=== PATIENT | female | born 1955 | race Caucasian/White ===

== ENCOUNTER 2020-04-15 14:40 | Inpatient (IN) | payer OTHER ==
[~2020-04-15] VITALS: Ht 160 cm; Wt 93.9 kg
[2020-04-15 17:23] LABS: BASOPHILS % 0.4 % (0.0-2.0); EOSINOPHILS % 0.2 % (0.0-5.0); HEMATOCRIT. 42.7 % (36.0-48.0); HEMOGLOBIN. 14.1 g/dL (12.0-16.0); LYMPHOCYTES % 10.1 % (20.0-50.0); MEAN CORPUSCULAR HEMOGLOBIN 28.8 pg (28.0-32.0); MEAN CORPUSCULAR VOLUME 87.5 fL (81.0-99.0); MEAN PLATELET VOLUME 8.2 fl (7.4-10.4); MONOCYTES % 7.8 % (2.0-8.0); NEUTROPHILS % 81.5 % (40.0-76.0); PLATELET 138 x1000/uL (130-400); RED BLOOD CELL COUNT 4.88 mill/uL (4.2-5.4); RED CELL DISTRIBUTION WIDTH 14.7 % (11.6-14.6)
[2020-04-15 17:29] LABS: CHLORIDE 103 mEq/L (98-107)
[2020-04-15 18:01] LABS: CLARITY URINE CLEAR (CLEAR); COLOR URINE YELLOW (YELLOW); KETONES URINE NEGATIVE (NEGATIVE); LEUKOCYTE ESTERASE URINE NEGATIVE (NEGATIVE); NITRITE URINE NEGATIVE (NEGATIVE); OCCULT BLOOD URINE 1+ (NEGATIVE); PH URINE 5.5 (4.5-8.0); PROTEIN URINE 2+ (NEGATIVE); SPECIFIC GRAVITY URINE 1.012 (1.005-1.030); UROBILINOGEN URINE 0.2 E.U./dL (0.2-1.0)
[2020-04-15] MEDS ORDERED: CLONIDINE 0.1MG TABLET PO PRN (20:45)
[2020-04-15] MEDS ORDERED: ONDANSETRON HCL 4MG/2ML INJ IV PRN (20:45)
[2020-04-15] MEDS ORDERED: VECURONIUM BROMIDE 10 MG/VIAL IV ONE ×2 (22:15→23:00)
[2020-04-15] MEDS ORDERED: VECURONIUM BROMIDE 10 MG/VIAL IV NR (22:15)
[2020-04-15] MEDS ORDERED: FENTANYL CITRATE/PF 2,500 MCG in SODIUM CHLORIDE 0.9% 200 ML IV PRN ×2 (22:15→22:30)
[2020-04-15] MEDS ORDERED: PROPOFOL 10MG/ML 100ML 100 ML IV SCH (22:15)
[2020-04-15] MEDS ORDERED: ETOMIDATE 2MG/ML 10ML VIAL IV NR (22:15)
[2020-04-15] MEDS ORDERED: DEXAMETHASONE 10 MG/ML VIAL IV NR (23:00)
[2020-04-15] MEDS ORDERED: ETOMIDATE 2MG/ML 10ML VIAL IV ONE (23:00)
[2020-04-15] MEDS ORDERED: AZITHROMYCIN 500 MG TABLET PO NR (23:00)
[2020-04-15] MEDS ORDERED: SODIUM CHLORIDE 0.9% 10ML VIAL ONE (23:00)
[2020-04-15] MEDS: CEFTRIAXONE 1,000 MG in DEXTROSE 5% WATER 50 ML IV SCH (23:00)
[2020-04-15] MEDS ORDERED: ENOXAPARIN 40MG/0.4ML SYR SUBCUT SCH (23:00)
[2020-04-15] MEDS ORDERED: CEFTRIAXONE SODIUM 1 G/VIAL ONE (23:53)
[2020-04-16 00:23] LABS: BG BASE EXCESS -5.1 mmol/L (-2.0-2.0); BG CARBOXYHEMOGLOBIN 0.3 % (0.5-1.5); BG FRACTION INSPIRED OXYGEN 100; BG HCO3 ACT 19.4 mmol/L (22.0-26.0); BG METHEMOGLOBIN 0.2 % (0.0-1.5); BG OXYHEMOGLOBIN 94.5 % (94.0-97.0); BG PCO2 34.5 mmHg (35.0-45.0); BG PH 7.367 (7.350-7.450); BG PO2 75.9 mmHg (75.0-100.0); BG TOTAL HEMOGLOBIN 14.4 g/dL (12.0-18.0); BG VENT MODE MASK - NRB
[2020-04-16 05:57] LABS: HEMATOCRIT. 37.7 % (36.0-48.0); HEMOGLOBIN. 12.7 g/dL (12.0-16.0); MEAN CORPUSCULAR HEMOGLOBIN 29.3 pg (28.0-32.0); MEAN PLATELET VOLUME 8.2 fl (7.4-10.4); PLATELET 132 x1000/uL (130-400); RED BLOOD CELL COUNT 4.34 mill/uL (4.2-5.4); RED CELL DISTRIBUTION WIDTH 14.6 % (11.6-14.6)
[2020-04-16 07:57] LABS: PLATELET ESTIMATE NORMAL
[2020-04-16] MEDS: DEXAMETHASONE 4MG TABLET PO SCH (09:00)
[2020-04-16] MEDS: SODIUM CHLORIDE 0.45% 1,000 ML IV SCH (15:30)
[2020-04-16 18:25] LABS: BG BASE EXCESS -5.1 mmol/L (-2.0-2.0); BG CARBOXYHEMOGLOBIN 0.3 % (0.5-1.5); BG DEOXYHEMOGLOBIN 13.4 % (0.0-5.0); BG FRACTION INSPIRED OXYGEN 100; BG HCO3 ACT 19.3 mmol/L (22.0-26.0); BG METHEMOGLOBIN 0.3 % (0.0-1.5); BG OXYGEN SATURATION 86.5 % (92.0-98.5); BG PCO2 34.5 mmHg (35.0-45.0); BG PH 7.366 (7.350-7.450); BG PO2 51.3 mmHg (75.0-100.0); BG SAMPLE SITE RIGHT BRACHIAL; BG TOTAL HEMOGLOBIN 14.8 g/dL (12.0-18.0); BG VENT MODE MASK - NRB
[2020-04-16] MEDS: ENOXAPARIN 40MG/0.4ML SYR SUBCUT SCH (21:00)
[2020-04-16] MEDS: ASCORBIC ACID 500 MG TABLET PO SCH (22:00)
[2020-04-16] MEDS: CEFTRIAXONE 1,000 MG in DEXTROSE 5% WATER 50 ML IV SCH (23:00)
[2020-04-16] MEDS: AZITHROMYCIN 250 MG TABLET PO SCH (23:00)
[2020-04-17] MEDS: ACETAMINOPHEN 325MG TABLET PO PRN ×2 (06:09→22:53)
[2020-04-17 09:15] LABS: HEMATOCRIT. 38.7 % (36.0-48.0); MEAN CORPUSCULAR HEMOGLOBIN 29.3 pg (28.0-32.0); MEAN CORPUSCULAR VOLUME 87.4 fL (81.0-99.0); MEAN PLATELET VOLUME 8.1 fl (7.4-10.4); PLATELET 156 x1000/uL (130-400); RED BLOOD CELL COUNT 4.43 mill/uL (4.2-5.4); RED CELL DISTRIBUTION WIDTH 14.3 % (11.6-14.6)
[2020-04-17] MEDS: DEXAMETHASONE 4MG TABLET PO SCH (10:21)
[2020-04-17] MEDS: ASCORBIC ACID 500 MG TABLET PO SCH ×3 (10:21→22:53)
[2020-04-17] MEDS: SODIUM CHLORIDE 0.45% 1,000 ML IV SCH (12:53)
[2020-04-17 16:02] LABS: PLATELET ESTIMATE NORMAL
[2020-04-17] MEDS: ALBUTEROL 6.7GM HFA INHALER ORI PRN (20:51)
[2020-04-17] MEDS: AZITHROMYCIN 250 MG TABLET PO SCH (22:53)
[2020-04-17] MEDS: ENOXAPARIN 40MG/0.4ML SYR SUBCUT SCH (22:53)
[2020-04-18] MEDS: CEFTRIAXONE 1,000 MG in DEXTROSE 5% WATER 50 ML IV SCH ×2 (01:02→19:07)
[2020-04-18] MEDS: ASCORBIC ACID 500 MG TABLET PO SCH ×3 (06:29→23:03)
[2020-04-18] MEDS: SODIUM CHLORIDE 0.45% 1,000 ML IV SCH (06:43)
[2020-04-18] MEDS: DEXAMETHASONE 4MG TABLET PO SCH (09:27)
[2020-04-18 10:26] LABS: BG BASE EXCESS -4.2 mmol/L (-2.0-2.0); BG CARBOXYHEMOGLOBIN 0.2 % (0.5-1.5); BG DEOXYHEMOGLOBIN 4.1 % (0.0-5.0); BG FRACTION INSPIRED OXYGEN 99.9; BG METHEMOGLOBIN 0.1 % (0.0-1.5); BG OXYGEN SATURATION 95.9 % (92.0-98.5); BG OXYHEMOGLOBIN 95.6 % (94.0-97.0); BG PCO2 34.1 mmHg (35.0-45.0); BG PH 7.386 (7.350-7.450); BG PO2 82.1 mmHg (75.0-100.0); BG SAMPLE SITE RIGHT BRACHIAL; BG TOTAL HEMOGLOBIN 14.4 g/dL (12.0-18.0); BG VENT MODE MASK - NRB
[2020-04-18] MEDS: ALBUTEROL 6.7GM HFA INHALER ORI PRN (11:28)
[2020-04-18] MEDS ORDERED: TRAMADOL 50MG TABLET PO ONE (12:00)
[2020-04-18 16:00] VITALS: BP 131/70
[2020-04-18 17:00] VITALS: BP 131/70
[2020-04-18] MEDS ORDERED: DEXTROSE 50% WATER 50ML SYRINGE IV PRN (17:15)
[2020-04-18] MEDS: BLOOD SUGAR DIAGNOSTIC STRIP TEST SCH ×2 (17:40→21:34)
[2020-04-18] MEDS: INSULIN LISPRO 100 UNITS/ML SUBCUT SCH ×2 (18:10→23:03)
[2020-04-18 20:00] VITALS: BP 141/64
[2020-04-18] MEDS: ENOXAPARIN 40MG/0.4ML SYR SUBCUT SCH (23:02)
[2020-04-18] MEDS: AZITHROMYCIN 250 MG TABLET PO SCH (23:03)
[2020-04-19] VITALS: BP 138/81
[2020-04-19 04:00] VITALS: BP 122/99
[2020-04-19] MEDS: SODIUM CHLORIDE 0.45% 1,000 ML IV SCH ×2 (04:14→22:43)
[2020-04-19] MEDS: TRAMADOL 50MG TABLET PO PRN (04:20)
[2020-04-19] MEDS: ASCORBIC ACID 500 MG TABLET PO SCH ×3 (06:00→22:42)
[2020-04-19] MEDS: BLOOD SUGAR DIAGNOSTIC STRIP TEST SCH ×4 (06:58→21:00)
[2020-04-19 08:00] VITALS: BP 137/75
[2020-04-19] MEDS: INSULIN LISPRO 100 UNITS/ML SUBCUT SCH ×4 (08:10→21:00)
[2020-04-19] MEDS: DEXAMETHASONE 4MG TABLET PO SCH (08:51)
[2020-04-19 12:00] VITALS: BP 137/83
[2020-04-19 16:00] VITALS: BP 134/79
[2020-04-19] MEDS ORDERED: PHEN8TAB PO (16:55)
[2020-04-19] MEDS ORDERED: LOSA1TAB37 MT (16:56)
[2020-04-19] MEDS ORDERED: ATOR10TA69 PO (16:57)
[2020-04-19] MEDS ORDERED: METF-414 PO (16:58)
[2020-04-19] MEDS: ACETAMINOPHEN 325MG TABLET PO PRN (17:03)
[2020-04-19] MEDS: CEFTRIAXONE 1,000 MG in DEXTROSE 5% WATER 50 ML IV SCH (18:06)
[2020-04-19 20:00] VITALS: BP 138/49
[2020-04-19] MEDS: ENOXAPARIN 40MG/0.4ML SYR SUBCUT SCH (22:41)
[2020-04-19] MEDS: AZITHROMYCIN 250 MG TABLET PO SCH (22:42)
[2020-04-20 04:00] VITALS: BP 153/84
[2020-04-20] MEDS: BLOOD SUGAR DIAGNOSTIC STRIP TEST SCH ×4 (05:53→20:57)
[2020-04-20] MEDS: ASCORBIC ACID 500 MG TABLET PO SCH ×3 (05:53→20:58)
[2020-04-20] MEDS: TRAMADOL 50MG TABLET PO PRN (06:31)
[2020-04-20 08:00] VITALS: BP 123/78
[2020-04-20] MEDS: INSULIN LISPRO 100 UNITS/ML SUBCUT SCH ×4 (08:10→20:59)
[2020-04-20] MEDS: DEXAMETHASONE 4MG TABLET PO SCH (09:25)
[2020-04-20 12:00] VITALS: BP 135/69
[2020-04-20 16:00] VITALS: BP 127/73
[2020-04-20 20:00] VITALS: BP 142/85
[2020-04-20] MEDS: ENOXAPARIN 40MG/0.4ML SYR SUBCUT SCH (20:58)
[2020-04-21] VITALS: BP 155/90
[2020-04-21 04:00] VITALS: BP 140/90
[2020-04-21] MEDS: ASCORBIC ACID 500 MG TABLET PO SCH ×3 (06:00→21:04)
[2020-04-21] MEDS: INSULIN LISPRO 100 UNITS/ML SUBCUT SCH ×4 (06:08→21:05)
[2020-04-21] MEDS: BLOOD SUGAR DIAGNOSTIC STRIP TEST SCH ×4 (06:08→21:04)
[2020-04-21] MEDS: SODIUM CHLORIDE 0.45% 1,000 ML IV SCH (06:09)
[2020-04-21] MEDS: TRAMADOL 50MG TABLET PO PRN (06:10)
[2020-04-21 07:21] LABS: HEMATOCRIT. 47.2 % (36.0-48.0); HEMOGLOBIN. 15.4 g/dL (12.0-16.0); MEAN CORPUSCULAR HEMOGLOBIN 28.7 pg (28.0-32.0); MEAN CORPUSCULAR VOLUME 87.8 fL (81.0-99.0); MEAN PLATELET VOLUME 8.1 fl (7.4-10.4); PLATELET 258 x1000/uL (130-400); RED BLOOD CELL COUNT 5.37 mill/uL (4.2-5.4); RED CELL DISTRIBUTION WIDTH 14.4 % (11.6-14.6)
[2020-04-21 07:33] LABS: CHLORIDE 104 mEq/L (98-107)
[2020-04-21 08:00] VITALS: BP 174/106
[2020-04-21] MEDS: DEXAMETHASONE 4MG TABLET PO SCH (09:23)
[2020-04-21 11:30] VITALS: BP 155/79
[2020-04-21 16:00] VITALS: BP 137/87
[2020-04-21] MEDS ORDERED: ZOLPIDEM TARTRATE 5MG TABLET PO PRN (17:15)
[2020-04-21 20:00] VITALS: BP 137/78
[2020-04-21] MEDS: ENOXAPARIN 40MG/0.4ML SYR SUBCUT SCH (21:06)
[2020-04-21 22:36] LABS: PLATELET ESTIMATE NORMAL
[2020-04-22] VITALS: BP 137/76
[2020-04-22 04:00] VITALS: BP 140/83
[2020-04-22] MEDS: ASCORBIC ACID 500 MG TABLET PO SCH ×3 (06:00→21:53)
[2020-04-22] MEDS: BLOOD SUGAR DIAGNOSTIC STRIP TEST SCH ×4 (07:10→21:52)
[2020-04-22] MEDS: INSULIN LISPRO 100 UNITS/ML SUBCUT SCH ×4 (07:10→21:54)
[2020-04-22 07:54] LABS: HEMATOCRIT. 46.6 % (36.0-48.0); HEMOGLOBIN. 15.3 g/dL (12.0-16.0); MEAN CORPUSCULAR HEMOGLOBIN 28.7 pg (28.0-32.0); MEAN CORPUSCULAR VOLUME 87.7 fL (81.0-99.0); MEAN PLATELET VOLUME 8.1 fl (7.4-10.4); PLATELET 265 x1000/uL (130-400); RED BLOOD CELL COUNT 5.32 mill/uL (4.2-5.4); RED CELL DISTRIBUTION WIDTH 14.6 % (11.6-14.6)
[2020-04-22 08:00] VITALS: BP 142/80
[2020-04-22 08:19] LABS: CHLORIDE 104 mEq/L (98-107)
[2020-04-22] MEDS ORDERED: FUROSEMIDE 20MG/2ML VIAL IVP NR (09:00)
[2020-04-22] MEDS ORDERED: GUAIFENESIN/CODEINE 100-10MG/5ML UDC PO PRN (09:00)
[2020-04-22] MEDS ORDERED: GUAIFENESIN/CODEINE 200-20MG/10ML UDC PO PRN (09:15)
[2020-04-22] MEDS: DEXAMETHASONE 4MG TABLET PO SCH (09:33)
[2020-04-22] MEDS: BENZONATATE 100MG CAPSULE PO SCH ×3 (09:33→21:53)
[2020-04-22 12:00] VITALS: BP 137/78
[2020-04-22] MEDS ORDERED: LACTULOSE 20G/30ML UDC PO PRN (14:00)
[2020-04-22] MEDS: DOCUSATE SODIUM 250MG CAPSULE PO SCH (14:46)
[2020-04-22 15:39] LABS: PLATELET ESTIMATE NORMAL
[2020-04-22 16:00] VITALS: BP 126/74
[2020-04-22 20:00] VITALS: BP 149/88
[2020-04-22] MEDS: ENOXAPARIN 40MG/0.4ML SYR SUBCUT SCH (21:52)
[2020-04-23] VITALS (60 sets, daily range): BP systolic 99–186; BP diastolic 50–117
[2020-04-23] MEDS: BENZONATATE 100MG CAPSULE PO SCH ×3 (05:38→21:25)
[2020-04-23] MEDS: ASCORBIC ACID 500 MG TABLET PO SCH ×3 (05:38→21:24)
[2020-04-23] MEDS: BLOOD SUGAR DIAGNOSTIC STRIP TEST SCH ×4 (07:02→21:25)
[2020-04-23] MEDS: INSULIN LISPRO 100 UNITS/ML SUBCUT SCH ×4 (08:10→21:25)
[2020-04-23] MEDS: DEXAMETHASONE 4MG TABLET PO SCH (09:18)
[2020-04-23] MEDS: DOCUSATE SODIUM 250MG CAPSULE PO SCH (09:18)
[2020-04-23] MEDS ORDERED: FENTANYL CITRATE/PF 1,000 MCG in SODIUM CHLORIDE 0.9% 80 ML IV PRN (14:00)
[2020-04-23 16:24] LABS: BG BASE EXCESS -2.1 mmol/L (-2.0-2.0); BG CARBOXYHEMOGLOBIN 0.3 % (0.5-1.5); BG DEOXYHEMOGLOBIN 1.2 % (0.0-5.0); BG FRACTION INSPIRED OXYGEN 100; BG HCO3 ACT 26.2 mmol/L (22.0-26.0); BG METHEMOGLOBIN 0.5 % (0.0-1.5); BG OXYGEN SATURATION 98.8 % (92.0-98.5); BG PH 7.266 (7.350-7.450); BG PO2 171.2 mmHg (75.0-100.0); BG SAMPLE SITE RIGHT RADIAL; BG TOTAL HEMOGLOBIN 16.4 g/dL (12.0-18.0); BG TOTAL RESPIRATORY RATE 29 b/min; BG VENT MODE VENT - AC
[2020-04-23 19:21] LABS: HEMATOCRIT. 42.9 % (36.0-48.0); HEMOGLOBIN. 13.9 g/dL (12.0-16.0); MEAN CORPUSCULAR HEMOGLOBIN 28.3 pg (28.0-32.0); MEAN CORPUSCULAR VOLUME 87.6 fL (81.0-99.0); MEAN PLATELET VOLUME 8.3 fl (7.4-10.4); PLATELET 225 x1000/uL (130-400); RED CELL DISTRIBUTION WIDTH 14.7 % (11.6-14.6)
[2020-04-23 19:22] LABS: CHLORIDE 102 mEq/L (98-107)
[2020-04-23 20:07] LABS: PLATELET ESTIMATE NORMAL
[2020-04-23] MEDS: ENOXAPARIN 40MG/0.4ML SYR SUBCUT SCH (21:24)
[2020-04-24] VITALS (139 sets, daily range): BP systolic 88–179; BP diastolic 48–124
[2020-04-24] MEDS: PROPOFOL 10MG/ML 100ML 100 ML IV PRN ×4 (00:51→13:03)
[2020-04-24] MEDS: INSULIN LISPRO 100 UNITS/ML SUBCUT SCH ×3 (06:00→18:43)
[2020-04-24] MEDS: BLOOD SUGAR DIAGNOSTIC STRIP TEST SCH ×3 (06:54→18:45)
[2020-04-24] MEDS: ASCORBIC ACID 500 MG TABLET PO SCH ×3 (06:56→21:17)
[2020-04-24] MEDS: BENZONATATE 100MG CAPSULE PO SCH ×3 (06:57→21:18)
[2020-04-24] MEDS: DEXAMETHASONE 4MG TABLET PO SCH (10:13)
[2020-04-24] MEDS: DOCUSATE SODIUM 250MG CAPSULE PO SCH (10:13)
[2020-04-24] MEDS: PANTOPRAZOLE SODIUM 40 MG/VIAL IV SCH (10:14)
[2020-04-24] MEDS: FENTANYL CITRATE/PF 2,500 MCG in SODIUM CHLORIDE 0.9% 200 ML IV PRN ×2 (10:27→22:33)
[2020-04-24 11:52] LABS: BG BASE EXCESS -9.1 mmol/L (-2.0-2.0); BG CARBOXYHEMOGLOBIN 0.3 % (0.5-1.5); BG DEOXYHEMOGLOBIN 9.1 % (0.0-5.0); BG FRACTION INSPIRED OXYGEN 90; BG HCO3 ACT 15.5 mmol/L (22.0-26.0); BG METHEMOGLOBIN 0.2 % (0.0-1.5); BG OXYGEN SATURATION 90.9 % (92.0-98.5); BG OXYHEMOGLOBIN 90.4 % (94.0-97.0); BG PCO2 30.7 mmHg (35.0-45.0); BG PH 7.322 (7.350-7.450); BG PO2 65.3 mmHg (75.0-100.0); BG SAMPLE SITE RIGHT RADIAL; BG TOTAL HEMOGLOBIN 14.9 g/dL (12.0-18.0); BG TOTAL RESPIRATORY RATE 35 b/min; BG VENT MODE VENT - AC
[2020-04-24] MEDS ORDERED: METOPROLOL TARTRATE 25MG TABLET PO NR (12:15)
[2020-04-24] MEDS ORDERED: PROPOFOL 10MG/ML 100ML 100 ML IV PRN (21:00)
[2020-04-24] MEDS: METOPROLOL TARTRATE 25MG TABLET PO SCH (21:18)
[2020-04-24] MEDS: ENOXAPARIN 40MG/0.4ML SYR SUBCUT SCH (21:18)
[2020-04-24] MEDS ORDERED: MIDAZOLAM HCL 100 MG in DEXT 5% WATER 80 ML IV PRN (22:15)
[2020-04-25] VITALS (68 sets, daily range): BP systolic 86–152; BP diastolic 51–109
[2020-04-25] MEDS: INSULIN LISPRO 100 UNITS/ML SUBCUT SCH ×4 (00:22→18:54)
[2020-04-25] MEDS: BLOOD SUGAR DIAGNOSTIC STRIP TEST SCH ×5 (00:22→23:50)
[2020-04-25] MEDS: PROPOFOL 10MG/ML 100ML 100 ML IV PRN ×3 (03:14→17:24)
[2020-04-25] MEDS: BENZONATATE 100MG CAPSULE PO SCH ×3 (05:39→23:49)
[2020-04-25] MEDS: ASCORBIC ACID 500 MG TABLET PO SCH ×3 (05:40→23:49)
[2020-04-25 07:14] LABS: HEMATOCRIT. 38.9 % (36.0-48.0); HEMOGLOBIN. 12.8 g/dL (12.0-16.0); MEAN PLATELET VOLUME 8.4 fl (7.4-10.4); PLATELET 188 x1000/uL (130-400); RED BLOOD CELL COUNT 4.42 mill/uL (4.2-5.4); RED CELL DISTRIBUTION WIDTH 14.8 % (11.6-14.6)
[2020-04-25 07:34] LABS: CHLORIDE 109 mEq/L (98-107)
[2020-04-25] MEDS: FENTANYL CITRATE/PF 2,500 MCG in SODIUM CHLORIDE 0.9% 200 ML IV PRN ×2 (08:25→17:22)
[2020-04-25] MEDS: DOCUSATE SODIUM 250MG CAPSULE PO SCH (08:25)
[2020-04-25] MEDS: PANTOPRAZOLE SODIUM 40 MG/VIAL IV SCH (08:25)
[2020-04-25] MEDS: METOPROLOL TARTRATE 25MG TABLET PO SCH ×2 (08:26→23:50)
[2020-04-25] MEDS: DEXAMETHASONE 4MG TABLET PO SCH (08:28)
[2020-04-25 12:35] LABS: BG BASE EXCESS -0.7 mmol/L (-2.0-2.0); BG CARBOXYHEMOGLOBIN 0.7 % (0.5-1.5); BG DEOXYHEMOGLOBIN 13.7 % (0.0-5.0); BG FRACTION INSPIRED OXYGEN 100; BG HCO3 ACT 26.8 mmol/L (22.0-26.0); BG METHEMOGLOBIN 0.3 % (0.0-1.5); BG OXYGEN SATURATION 86.2 % (92.0-98.5); BG OXYHEMOGLOBIN 85.3 % (94.0-97.0); BG PCO2 56.2 mmHg (35.0-45.0); BG PH 7.297 (7.350-7.450); BG PO2 54.4 mmHg (75.0-100.0); BG SAMPLE SITE RIGHT RADIAL; BG VENT MODE VENT - AC
[2020-04-25 18:41] LABS: PLATELET ESTIMATE NORMAL
[2020-04-25] MEDS: ENOXAPARIN 40MG/0.4ML SYR SUBCUT SCH (23:50)
[2020-04-26] VITALS (81 sets, daily range): BP systolic 79–134; BP diastolic 43–94
[2020-04-26] MEDS: ACETAMINOPHEN 325MG TABLET PO PRN (00:06)
[2020-04-26] MEDS: PROPOFOL 10MG/ML 100ML 100 ML IV PRN ×3 (01:04→18:00)
[2020-04-26] MEDS: FENTANYL CITRATE/PF 2,500 MCG in SODIUM CHLORIDE 0.9% 200 ML IV PRN ×2 (02:33→12:22)
[2020-04-26] MEDS: PHENYLEPHRINE 100 MG in DEXT 5% WATER 240 ML IV PRN ×2 (03:48→18:02)
[2020-04-26] MEDS: INSULIN LISPRO 100 UNITS/ML SUBCUT SCH ×5 (06:00→23:15)
[2020-04-26] MEDS: ASCORBIC ACID 500 MG TABLET PO SCH ×3 (06:23→21:28)
[2020-04-26] MEDS: BENZONATATE 100MG CAPSULE PO SCH ×3 (06:23→21:28)
[2020-04-26] MEDS: BLOOD SUGAR DIAGNOSTIC STRIP TEST SCH ×4 (06:24→23:08)
[2020-04-26 06:27] LABS: HEMATOCRIT. 38.1 % (36.0-48.0); HEMOGLOBIN. 12.4 g/dL (12.0-16.0); MEAN CORPUSCULAR HEMOGLOBIN 29.1 pg (28.0-32.0); MEAN CORPUSCULAR VOLUME 89.1 fL (81.0-99.0); MEAN PLATELET VOLUME 8.8 fl (7.4-10.4); PLATELET 224 x1000/uL (130-400); RED BLOOD CELL COUNT 4.27 mill/uL (4.2-5.4); RED CELL DISTRIBUTION WIDTH 15.1 % (11.6-14.6)
[2020-04-26] MEDS: DEXAMETHASONE 4MG TABLET PO SCH (09:09)
[2020-04-26] MEDS: DOCUSATE SODIUM 250MG CAPSULE PO SCH (09:09)
[2020-04-26] MEDS: METOPROLOL TARTRATE 25MG TABLET PO SCH ×2 (09:09→20:42)
[2020-04-26] MEDS: FAMOTIDINE 20MG/2ML VIAL IV SCH ×2 (09:09→21:29)
[2020-04-26 10:09] LABS: BG BASE EXCESS 2.4 mmol/L (-2.0-2.0); BG CARBOXYHEMOGLOBIN 0.7 % (0.5-1.5); BG DEOXYHEMOGLOBIN 5.6 % (0.0-5.0); BG FRACTION INSPIRED OXYGEN 100; BG HCO3 ACT 30.8 mmol/L (22.0-26.0); BG METHEMOGLOBIN 0.3 % (0.0-1.5); BG OXYGEN SATURATION 94.3 % (92.0-98.5); BG OXYHEMOGLOBIN 93.4 % (94.0-97.0); BG PCO2 65.6 mmHg (35.0-45.0); BG PO2 73.2 mmHg (75.0-100.0); BG SAMPLE SITE RIGHT RADIAL; BG VENT MODE VENT - AC
[2020-04-26] MEDS: CEFEPIME 1,000 MG in DEXTROSE 5% WATER 50 ML IV SCH ×2 (12:08→21:28)
[2020-04-26] MEDS: SODIUM CHLORIDE 0.45% 1,000 ML IV SCH (15:17)
[2020-04-26 17:02] LABS: PLATELET ESTIMATE NORMAL
[2020-04-26] MEDS: ENOXAPARIN 40MG/0.4ML SYR SUBCUT SCH (21:28)
[2020-04-27] VITALS (67 sets, daily range): BP systolic 75–187; BP diastolic 33–105
[2020-04-27] MEDS: FENTANYL CITRATE/PF 2,500 MCG in SODIUM CHLORIDE 0.9% 200 ML IV PRN ×3 (00:15→18:28)
[2020-04-27] MEDS: PROPOFOL 10MG/ML 100ML 100 ML IV PRN ×5 (02:30→23:42)
[2020-04-27] MEDS: SODIUM CHLORIDE 0.45% 1,000 ML IV SCH ×2 (04:41→17:54)
[2020-04-27] MEDS: ASCORBIC ACID 500 MG TABLET PO SCH ×3 (05:14→21:29)
[2020-04-27] MEDS: BENZONATATE 100MG CAPSULE PO SCH ×3 (05:14→21:29)
[2020-04-27] MEDS: BLOOD SUGAR DIAGNOSTIC STRIP TEST SCH ×4 (05:14→23:42)
[2020-04-27] MEDS: INSULIN LISPRO 100 UNITS/ML SUBCUT SCH ×4 (05:21→23:42)
[2020-04-27 06:16] LABS: HEMATOCRIT. 38.7 % (36.0-48.0); HEMOGLOBIN. 12.5 g/dL (12.0-16.0); MEAN CORPUSCULAR HEMOGLOBIN 28.8 pg (28.0-32.0); MEAN CORPUSCULAR VOLUME 89.2 fL (81.0-99.0); MEAN PLATELET VOLUME 9.3 fl (7.4-10.4); PLATELET 214 x1000/uL (130-400); RED BLOOD CELL COUNT 4.34 mill/uL (4.2-5.4); RED CELL DISTRIBUTION WIDTH 14.9 % (11.6-14.6)
[2020-04-27 08:37] LABS: CHLORIDE 107 mEq/L (98-107)
[2020-04-27] MEDS: METOPROLOL TARTRATE 25MG TABLET PO SCH ×2 (09:00→21:00)
[2020-04-27] MEDS: DOCUSATE SODIUM 250MG CAPSULE PO SCH (09:16)
[2020-04-27] MEDS: FAMOTIDINE 20MG/2ML VIAL IV SCH ×2 (09:16→21:29)
[2020-04-27] MEDS: CEFEPIME 1,000 MG in DEXTROSE 5% WATER 50 ML IV SCH ×2 (09:17→21:28)
[2020-04-27 10:27] LABS: PLATELET ESTIMATE NORMAL
[2020-04-27 11:10] LABS: BG BASE EXCESS 2.3 mmol/L (-2.0-2.0); BG CARBOXYHEMOGLOBIN 0.5 % (0.5-1.5); BG DEOXYHEMOGLOBIN 10.1 % (0.0-5.0); BG FRACTION INSPIRED OXYGEN 85; BG HCO3 ACT 30.1 mmol/L (22.0-26.0); BG METHEMOGLOBIN 0.4 % (0.0-1.5); BG OXYGEN SATURATION 89.8 % (92.0-98.5); BG PCO2 60.5 mmHg (35.0-45.0); BG PH 7.314 (7.350-7.450); BG PO2 57.1 mmHg (75.0-100.0); BG SAMPLE SITE RIGHT RADIAL; BG TOTAL HEMOGLOBIN 13.7 g/dL (12.0-18.0); BG VENT MODE VENT - AC
[2020-04-27] MEDS ORDERED: SODIUM POLYSTYRENE SULFONATE 15 G/60 ML BOT NG NR (12:30)
[2020-04-27] MEDS: PHENYLEPHRINE 100 MG in DEXT 5% WATER 240 ML IV PRN (18:00)
[2020-04-27] MEDS: ENOXAPARIN 30MG/0.3ML SYR SUBCUT SCH (21:29)
[2020-04-28] VITALS (79 sets, daily range): BP systolic 60–172; BP diastolic 30–113
[2020-04-28] MEDS: FENTANYL CITRATE/PF 2,500 MCG in SODIUM CHLORIDE 0.9% 200 ML IV PRN ×3 (02:35→21:31)
[2020-04-28] MEDS ORDERED: PROPOFOL 10MG/ML 100ML 100 ML IV PRN (04:15)
[2020-04-28] MEDS: MIDAZOLAM HCL 100 MG in SODIUM CHLORIDE 0.9% 80 ML IV PRN ×2 (04:19→15:12)
[2020-04-28] MEDS ORDERED: ACETAMINOPHEN 650MG/20.3ML UDC PO PRN (04:45)
[2020-04-28] MEDS: ACETAMINOPHEN 325MG TABLET PO PRN (04:47)
[2020-04-28] MEDS: BLOOD SUGAR DIAGNOSTIC STRIP TEST SCH ×4 (05:15→23:55)
[2020-04-28] MEDS: ASCORBIC ACID 500 MG TABLET PO SCH ×3 (05:17→21:30)
[2020-04-28] MEDS: INSULIN LISPRO 100 UNITS/ML SUBCUT SCH ×4 (05:23→23:55)
[2020-04-28] MEDS: BENZONATATE 100MG CAPSULE PO SCH ×3 (05:41→20:00)
[2020-04-28] MEDS: SODIUM CHLORIDE 0.45% 1,000 ML IV SCH ×2 (06:15→19:35)
[2020-04-28] MEDS: CEFEPIME 1,000 MG in DEXTROSE 5% WATER 50 ML IV SCH ×2 (10:08→21:30)
[2020-04-28] MEDS: ENOXAPARIN 30MG/0.3ML SYR SUBCUT SCH ×2 (10:09→21:29)
[2020-04-28] MEDS: DOCUSATE SODIUM 250MG CAPSULE PO SCH (10:09)
[2020-04-28] MEDS: FAMOTIDINE 20MG/2ML VIAL IV SCH ×2 (10:09→21:29)
[2020-04-28] MEDS: METOPROLOL TARTRATE 25MG TABLET PO SCH ×2 (10:10→21:29)
[2020-04-28] MEDS: PROPOFOL 10MG/ML 100ML 100 ML IV PRN (10:14)
[2020-04-28 11:54] LABS: BG BASE EXCESS -0.4 mmol/L (-2.0-2.0); BG CARBOXYHEMOGLOBIN 0.3 % (0.5-1.5); BG DEOXYHEMOGLOBIN 11.8 % (0.0-5.0); BG HCO3 ACT 27.1 mmol/L (22.0-26.0); BG METHEMOGLOBIN 0.1 % (0.0-1.5); BG OXYGEN SATURATION 88.2 % (92.0-98.5); BG OXYHEMOGLOBIN 87.8 % (94.0-97.0); BG PH 7.303 (7.350-7.450); BG PO2 55.8 mmHg (75.0-100.0); BG SAMPLE SITE RIGHT RADIAL; BG TOTAL HEMOGLOBIN 14.6 g/dL (12.0-18.0); BG VENT MODE VENT - AC
[2020-04-28 21:04] LABS: HEMATOCRIT. 40.7 % (36.0-48.0); HEMOGLOBIN. 13.2 g/dL (12.0-16.0); MEAN CORPUSCULAR HEMOGLOBIN 28.8 pg (28.0-32.0); MEAN CORPUSCULAR VOLUME 88.7 fL (81.0-99.0); MEAN PLATELET VOLUME 8.7 fl (7.4-10.4); PLATELET 177 x1000/uL (130-400); RED CELL DISTRIBUTION WIDTH 14.8 % (11.6-14.6)
[2020-04-28 21:12] LABS: CHLORIDE 106 mEq/L (98-107)
[2020-04-28 21:32] LABS: PLATELET ESTIMATE NORMAL
[2020-04-29] VITALS (79 sets, daily range): BP systolic 81–178; BP diastolic 42–75
[2020-04-29] MEDS: MIDAZOLAM HCL 100 MG in SODIUM CHLORIDE 0.9% 80 ML IV PRN ×3 (01:30→19:25)
[2020-04-29] MEDS: BENZONATATE 100MG CAPSULE PO SCH ×3 (05:34→21:48)
[2020-04-29] MEDS: BLOOD SUGAR DIAGNOSTIC STRIP TEST SCH ×3 (05:34→18:00)
[2020-04-29] MEDS: ASCORBIC ACID 500 MG TABLET PO SCH ×3 (05:48→21:47)
[2020-04-29] MEDS: INSULIN LISPRO 100 UNITS/ML SUBCUT SCH ×3 (05:48→18:00)
[2020-04-29] MEDS: FAMOTIDINE 20MG/2ML VIAL IV SCH ×2 (10:14→21:47)
[2020-04-29] MEDS: DOCUSATE SODIUM 250MG CAPSULE PO SCH (10:14)
[2020-04-29] MEDS: METOPROLOL TARTRATE 25MG TABLET PO SCH ×3 (10:15→21:52)
[2020-04-29] MEDS: ENOXAPARIN 30MG/0.3ML SYR SUBCUT SCH ×2 (10:15→21:48)
[2020-04-29] MEDS: CEFEPIME 1,000 MG in DEXTROSE 5% WATER 50 ML IV SCH ×2 (10:16→21:48)
[2020-04-29] MEDS: SODIUM CHLORIDE 0.45% 1,000 ML IV SCH ×2 (19:00→21:49)
[2020-04-29] MEDS: FENTANYL CITRATE/PF 2,500 MCG in SODIUM CHLORIDE 0.9% 200 ML IV PRN (22:02)
[2020-04-30] VITALS (104 sets, daily range): BP systolic 60–172; BP diastolic 30–89
[2020-04-30] MEDS: MIDAZOLAM HCL 100 MG in SODIUM CHLORIDE 0.9% 80 ML IV PRN ×3 (03:08→22:15)
[2020-04-30] MEDS: BENZONATATE 100MG CAPSULE PO SCH ×3 (05:36→22:33)
[2020-04-30 05:45] LABS: HEMATOCRIT. 35.8 % (36.0-48.0); HEMOGLOBIN. 11.5 g/dL (12.0-16.0); MEAN CORPUSCULAR HEMOGLOBIN 28.7 pg (28.0-32.0); MEAN CORPUSCULAR VOLUME 89.3 fL (81.0-99.0); MEAN PLATELET VOLUME 8.8 fl (7.4-10.4); PLATELET 190 x1000/uL (130-400); RED BLOOD CELL COUNT 4.01 mill/uL (4.2-5.4)
[2020-04-30] MEDS: ASCORBIC ACID 500 MG TABLET PO SCH ×3 (05:57→22:34)
[2020-04-30] MEDS: INSULIN LISPRO 100 UNITS/ML SUBCUT SCH ×5 (06:00→23:28)
[2020-04-30] MEDS: BLOOD SUGAR DIAGNOSTIC STRIP TEST SCH ×5 (06:32→23:16)
[2020-04-30] MEDS: DOCUSATE SODIUM 250MG CAPSULE PO SCH (08:33)
[2020-04-30] MEDS: FAMOTIDINE 20MG/2ML VIAL IV SCH ×2 (08:33→22:34)
[2020-04-30] MEDS: ENOXAPARIN 30MG/0.3ML SYR SUBCUT SCH (08:34)
[2020-04-30] MEDS: FENTANYL CITRATE/PF 2,500 MCG in SODIUM CHLORIDE 0.9% 200 ML IV PRN ×3 (08:35→23:54)
[2020-04-30] MEDS: METOPROLOL TARTRATE 25MG TABLET PO SCH ×2 (08:55→21:00)
[2020-04-30] MEDS: SODIUM CHLORIDE 0.45% 1,000 ML IV SCH ×2 (09:20→22:15)
[2020-04-30] MEDS: CEFEPIME 1,000 MG in DEXTROSE 5% WATER 50 ML IV SCH ×2 (09:21→22:33)
[2020-04-30] MEDS: PHENYLEPHRINE 100 MG in DEXT 5% WATER 240 ML IV PRN ×2 (10:06→22:15)
[2020-04-30 14:14] LABS: BG BASE EXCESS -2.4 mmol/L (-2.0-2.0); BG CARBOXYHEMOGLOBIN 0.3 % (0.5-1.5); BG DEOXYHEMOGLOBIN 5.9 % (0.0-5.0); BG FRACTION INSPIRED OXYGEN 100; BG HCO3 ACT 24.1 mmol/L (22.0-26.0); BG METHEMOGLOBIN 0.3 % (0.0-1.5); BG OXYGEN SATURATION 94.1 % (92.0-98.5); BG OXYHEMOGLOBIN 93.5 % (94.0-97.0); BG PCO2 48.6 mmHg (35.0-45.0); BG PH 7.313 (7.350-7.450); BG PO2 70.7 mmHg (75.0-100.0); BG SAMPLE SITE RIGHT RADIAL; BG TOTAL HEMOGLOBIN 12.7 g/dL (12.0-18.0); BG VENT MODE VENT - AC
[2020-04-30] MEDS ORDERED: SODIUM POLYSTYRENE SULFONATE 15 G/60 ML BOT PO NR (19:30)
[2020-04-30 21:14] LABS: PLATELET ESTIMATE NORMAL
[2020-05-01] VITALS (71 sets, daily range): BP systolic 58–148; BP diastolic 32–70
[2020-05-01] MEDS ORDERED: NOREPINEPHRINE 32 MG in DEXT 5% WATER 218 ML IV PRN (03:30)
[2020-05-01] MEDS: INSULIN LISPRO 100 UNITS/ML SUBCUT SCH ×3 (06:00→18:00)
[2020-05-01] MEDS: BLOOD SUGAR DIAGNOSTIC STRIP TEST SCH ×3 (06:12→18:26)
[2020-05-01] MEDS: ASCORBIC ACID 500 MG TABLET PO SCH ×3 (06:16→22:07)
[2020-05-01] MEDS: PHENYLEPHRINE 100 MG in DEXT 5% WATER 240 ML IV PRN (06:16)
[2020-05-01] MEDS: BENZONATATE 100MG CAPSULE PO SCH ×3 (06:50→22:07)
[2020-05-01] MEDS: FENTANYL CITRATE/PF 2,500 MCG in SODIUM CHLORIDE 0.9% 200 ML IV PRN (08:59)
[2020-05-01] MEDS: METOPROLOL TARTRATE 25MG TABLET PO SCH ×2 (09:00→21:00)
[2020-05-01] MEDS: MIDAZOLAM HCL 100 MG in SODIUM CHLORIDE 0.9% 80 ML IV PRN (09:04)
[2020-05-01] MEDS: CEFEPIME 1,000 MG in DEXTROSE 5% WATER 50 ML IV SCH (10:25)
[2020-05-01] MEDS: DOCUSATE SODIUM 250MG CAPSULE PO SCH (10:25)
[2020-05-01] MEDS: ENOXAPARIN 40MG/0.4ML SYR SUBCUT SCH (10:25)
[2020-05-01] MEDS: FAMOTIDINE 20MG/2ML VIAL IV SCH ×2 (10:26→22:07)
[2020-05-01 11:46] LABS: BG BASE EXCESS -8.2 mmol/L (-2.0-2.0); BG CARBOXYHEMOGLOBIN 0.5 % (0.5-1.5); BG DEOXYHEMOGLOBIN 0.9 % (0.0-5.0); BG FRACTION INSPIRED OXYGEN 100; BG HCO3 ACT 19.8 mmol/L (22.0-26.0); BG METHEMOGLOBIN 0.4 % (0.0-1.5); BG OXYGEN SATURATION 99.1 % (92.0-98.5); BG OXYHEMOGLOBIN 98.2 % (94.0-97.0); BG PCO2 51.2 mmHg (35.0-45.0); BG PH 7.206 (7.350-7.450); BG PO2 183.2 mmHg (75.0-100.0); BG SAMPLE SITE RIGHT RADIAL; BG VENT MODE VENT - AC
[2020-05-01] MEDS: SODIUM CHLORIDE 0.45% 1,000 ML IV SCH (13:49)
[2020-05-01] MEDS ORDERED: SODIUM BICARBONATE 8.4% 1 MEQ/ML 50ML SYR IV SCH (14:30)
[2020-05-01 17:41] LABS: HEMATOCRIT. 36.3 % (36.0-48.0); HEMOGLOBIN. 11.7 g/dL (12.0-16.0); MEAN CORPUSCULAR HEMOGLOBIN 28.5 pg (28.0-32.0); MEAN CORPUSCULAR VOLUME 88.6 fL (81.0-99.0); MEAN PLATELET VOLUME 8.4 fl (7.4-10.4); PLATELET 214 x1000/uL (130-400); RED CELL DISTRIBUTION WIDTH 15.4 % (11.6-14.6)
[2020-05-01 18:35] LABS: PLATELET ESTIMATE NORMAL
[2020-05-01] MEDS ORDERED: SODIUM POLYSTYRENE SULFONATE 15 G/60 ML BOT PO NR (21:00)
[2020-05-02] VITALS (18 sets, daily range): BP systolic 0–136; BP diastolic 0–85
[2020-05-02] MEDS: SODIUM CHLORIDE 0.45% 1,000 ML IV SCH (03:35)
[2020-05-02] MEDS: BLOOD SUGAR DIAGNOSTIC STRIP TEST SCH ×3 (06:00→12:00)
[2020-05-02] MEDS: INSULIN LISPRO 100 UNITS/ML SUBCUT SCH ×3 (06:00→12:00)
[2020-05-02] MEDS: ASCORBIC ACID 500 MG TABLET PO SCH ×2 (07:14→13:33)
[2020-05-02] MEDS: BENZONATATE 100MG CAPSULE PO SCH ×2 (07:15→13:33)
[2020-05-02 10:15] LABS: BG BASE EXCESS -8.9 mmol/L (-2.0-2.0); BG CARBOXYHEMOGLOBIN 0.5 % (0.5-1.5); BG DEOXYHEMOGLOBIN 5.7 % (0.0-5.0); BG FRACTION INSPIRED OXYGEN 100; BG HCO3 ACT 20.1 mmol/L (22.0-26.0); BG METHEMOGLOBIN 0.3 % (0.0-1.5); BG OXYGEN SATURATION 94.3 % (92.0-98.5); BG OXYHEMOGLOBIN 93.5 % (94.0-97.0); BG PCO2 57.2 mmHg (35.0-45.0); BG PH 7.163 (7.350-7.450); BG PO2 77.8 mmHg (75.0-100.0); BG SAMPLE SITE LEFT RADIAL; BG TOTAL HEMOGLOBIN 12.6 g/dL (12.0-18.0); BG VENT MODE VENT - AC
[2020-05-02] MEDS: METOPROLOL TARTRATE 25MG TABLET PO SCH (10:44)
[2020-05-02] MEDS: DOCUSATE SODIUM 250MG CAPSULE PO SCH (10:44)
[2020-05-02] MEDS: FAMOTIDINE 20MG/2ML VIAL IV SCH (10:45)
[2020-05-02] MEDS: ENOXAPARIN 40MG/0.4ML SYR SUBCUT SCH (10:45)
[2020-05-02 12:09] LABS: HEMATOCRIT. 36.7 % (36.0-48.0); HEMOGLOBIN. 11.6 g/dL (12.0-16.0); MEAN CORPUSCULAR HEMOGLOBIN 28.2 pg (28.0-32.0); MEAN CORPUSCULAR VOLUME 89.2 fL (81.0-99.0); MEAN PLATELET VOLUME 8.7 fl (7.4-10.4); PLATELET 220 x1000/uL (130-400); RED BLOOD CELL COUNT 4.11 mill/uL (4.2-5.4); RED CELL DISTRIBUTION WIDTH 15.1 % (11.6-14.6)
[2020-05-02] MEDS ORDERED: SODIUM BICARBONATE 8.4% 1 MEQ/ML 50ML SYR IV NR (13:15)
[2020-05-02] MEDS ORDERED: SODIUM BICARBONATE 8.4% 1 MEQ/ML 50ML SYR IV ONE (13:48)
[2020-05-02] MEDS ORDERED: SODIUM POLYSTYRENE SULFONATE 15 G/60 ML BOT PO NR (14:00)
[2020-05-02 14:02] LABS: NUCLEATED RED BLOOD CELLS 1 /100 WBC; PLATELET ESTIMATE NORMAL
[2020-05-02] MEDS: PHENYLEPHRINE 100 MG in DEXT 5% WATER 240 ML IV PRN (15:04)
[2020-05-02] MEDS ORDERED: LORAZEPAM 2MG/ML CPJ IV NR (16:15)
[2020-05-02] MEDS ORDERED: MORPHINE SULFATE 2 MG/ML CPJ (NOT FOR IM USE) IV NR (16:15)
[2020-05-02] MEDS ORDERED: MORPHINE SULFATE 2 MG/ML CPJ (NOT FOR IM USE) IV PRN (16:15)
[2020-05-02] MEDS ORDERED: LORAZEPAM 2MG/ML CPJ IV PRN (16:15)
== END 2020-05-02 17:45 | disposition expired | DRG 870 ==
LOC: ER 14:57 → MICUSO 18:58 → 7WST 04-18 14:14 → 5EST 04-23 13:39
PROVIDERS: ADMIT Internal Medicine; ATTEND Internal Medicine
PROC: 5A09357 Assistance with Respiratory Ventilation, Less than 24 Consecutive Hours, Continuous Positive Airway Pressure (ICD-10-PCS; 2020-04-18)
PROC: 0BH17EZ Insertion of Endotracheal Airway into Trachea, Via Natural or Artificial Opening (ICD-10-PCS; principal; 2020-04-23)
PROC: 5A1955Z Respiratory Ventilation, Greater than 96 Consecutive Hours (ICD-10-PCS; 2020-04-23)
PROC: 5A09357 Assistance with Respiratory Ventilation, Less than 24 Consecutive Hours, Continuous Positive Airway Pressure (ICD-10-PCS; 2020-04-23)
PROC: 05HY33Z Insertion of Infusion Device into Upper Vein, Percutaneous Approach (ICD-10-PCS; 2020-04-24)
PROC: B54MZZA Ultrasonography of Right Upper Extremity Veins, Guidance (ICD-10-PCS; 2020-04-24)
DX: A41.89 Other specified sepsis (principal); U07.1 COVID-19; J96.01 Acute respiratory failure with hypoxia; J12.82 Pneumonia due to coronavirus disease 2019; J15.1 Pneumonia due to Pseudomonas; J96.02 Acute respiratory failure with hypercapnia; R65.21 Severe sepsis with septic shock; E87.2 Acidosis; N17.9 Acute kidney failure, unspecified; E44.1 Mild protein-calorie malnutrition; E87.1 Hypo-osmolality and hyponatremia; Z51.5 Encounter for palliative care; Z66 Do not resuscitate; R65.20 Severe sepsis without septic shock; E11.9 Type 2 diabetes mellitus without complications; I10 Essential (primary) hypertension; Z82.49 Family history of ischemic heart disease and other diseases of the circulatory system; Z83.3 Family history of diabetes mellitus; Z68.36 Body mass index [BMI] 36.0-36.9, adult
CPT/HCPCS: 36415; 36600; 71045; 76770; 76937; 80048; 80076; 81003; 82375; 82728; 82805; 82962; 83036; 83605; 83880; 84145; 84478; 84484; 85025; 85379; 86140; 87070; 87077; 87186; 87804; 93005; 94003; 94640; 96365; 96372; 96375; 99291; A6261; C1725; C9113; C9803; J0692; J0696; J1100; J1650; J1815; J1940; J2060; J2250; J2270; J2370; J2405; J2704; J3010; J3490; J7040; J7050; J7060; J8540; U0003